=== PATIENT | female | born 1940 | race Caucasian/White ===

== ENCOUNTER → 2017-02-12 | Outpatient (CLI) | payer OTHER, MEDICAID | LOC: FIMAGING 10:01 | PROVIDERS: ATTEND Internal Medicine Hematology & Oncology | DX: Z12.31 Encounter for screening mammogram for malignant neoplasm of breast (principal); Z85.3 Personal history of malignant neoplasm of breast | CPT/HCPCS: G0202 ==

== ENCOUNTER → 2018-03-12 | Outpatient (CLI) | payer OTHER, MEDICAID | LOC: FIMAGING 09:25 | PROVIDERS: ATTEND Internal Medicine Hematology & Oncology | DX: Z12.31 Encounter for screening mammogram for malignant neoplasm of breast (principal); Z85.3 Personal history of malignant neoplasm of breast ==

== ENCOUNTER 2018-10-19 16:42 | Emergency (ER) | payer OTHER, MEDICAID ==
--- NOTE | 2018-10-19 16:43 | EDPHY ---
H & P Time Seen by Provider: 10/19/18 16:42 Constitutional: Initial Vital Signs Temperature (C) 36.3 C 10/19/18 16:50 Heart Rate 95 10/19/18 16:50 Respiratory Rate 16 10/19/18 16:50 Blood Pressure 184/122 H 10/19/18 16:50 O2 Sat (%) 97 10/19/18 16:50 O2 Delivery Mode Room Air Allergies/Adverse Reactions: iodine Allergy (Intermediate, Verified 03/01/15 11:44) NAUSEA morphine Allergy (Intermediate, Verified 03/01/15 11:44) Hives Penicillins Allergy (Intermediate, Verified 03/01/15 11:44) Hives shellfish derived Allergy (Intermediate, Verified 03/01/15 11:44) NAUSEA BEE PRODUCTS, BEE STINGS Allergy (Severe, Uncoded 03/01/15 11:44) Anaphylaxis Home Medications: Medication Instructions Recorded Allopurinol 10/19/18 Glimepiride 10/19/18 Indomethacin 10/19/18 Medical Decision Making ED Course/Re-evaluation: CHIEF COMPLAINT: Hypoglycemia HISTORY OF PRESENT ILLNESS: The patient is a 78 y/o female with a history of hypertension, breast cancer, and hyperglycemia who arrives via EMS for evaluation of hypoglycemia this evening. Per EMS, her described her as foggy since yesterday that worsened today to the point where she stopped answering questions so he called EMS. They found her altered with a BGL of 38. They administered 20gm IV dextrose and her symptoms improved significantly. She then told them she is trying to lose weight and is on a calorie restriction diet consuming about 1200 calories per day. She is also on glimepiride for blood sugar control, which she has continued to take while dieting. She does not know why she is on this medication and does not think she has has a history of diabetes or blood sugar issues. She currently denies any complaints including headache, weakness, paresthesias, recent illness, or recent trauma. REVIEW OF SYSTEMS: A comprehensive 10 system review of systems is otherwise negative aside from elements mentioned in the history of present illness and medical decision making. PHYSICAL EXAM: HR, BP, O2 Sat, RR. Temp noted General Appearance: Alert, well hydrated, appropriate, and non-toxic appearing. Head: Atraumatic without scalp tenderness or obvious injury Eyes: Pupils equal, round, reactive to light and accommodation, EOMI, no trauma , no injection. Nose: Atraumatic, no rhinorrhea, clear. Throat: Mucus membranes moist. Neck: Supple, nontender, no lymphadenopathy. Respiratory: No retractions, no distress, no wheezes, and no accessory muscle use. Lungs are clear to auscultation bilaterally. Cardiovascular: Regular rate and rhythm, no murmurs, rubs, or gallops. Good capillary refill all extremities. Gastrointestinal: Abdomen is soft, nontender, non-distended, no masses, no rebound, no guarding, no peritoneal signs. Musculoskeletal: Normal active ROM of all extremities, atraumatic. Neurological: Alert, appropriate, and interactive. The patient has non-focal cranial nerves, motor, sensory, and cerebellar exam. Skin: No rashes, good turgor, no nodules on palpation. Past medical history: Hypertension, hyperglycemia/diabetes?, breast cancer, hypothyroidism Past surgical history: Lumpectomy, hysterectomy Family history: Noncontributory Social history: . Lives in [place]. Retired. DIFFERENTIAL DIAGNOSIS: The differential diagnosis for the patient's altered mental status included but was not limited to hypoglycemia, infectious process, electrolyte abnormality, head injury, neurologic process, anemia, cardiac process, and intoxicants. MEDICAL DECISION MAKING: This is a 78 y/o female with some history of hyperglycemia or diabetes who presents for evaluation after an episode of hypoglycemia in the setting of calorie restriction and continued use of her glimepiride. She is currently asymptomatic and her exam is unremarkable. Plan for PO food and BGL recheck. Repeat BGL has improved. Patient will be discharged home in good condition with instructions to continue eating tonight and follow up with her PCP before continuing any dieting. Standard care instructions and return precautions discussed. She is comfortable with plan for discharge. - Data Points Laboratory Results: 10/19/18 17:36 POC Hgb 18.0 gm/dL H gm/dL (12.6-16.3) POC Hct 53 % H % (38-47) POC Sodium 139 mEq/L mEq/L (135-145) POC Potassium 3.5 mEq/L mEq/L (3.3-5.0) POC Chloride 102 mEq/L mEq/L (97-110) POC Total CO2 19 mEq/L L mEq/L (22-31) POC BUN 15 mg/dL mg/dL (7-23) POC Creatinine 1.0 mg/dL mg/dL (0.6-1.0) POC Glucose 50 mg/dL L mg/dL (70-100) Point of Care Test Results: Chemistry 10/19/18 17:36 POC Sodium 139 mEq/L mEq/L (135-145) POC Potassium 3.5 mEq/L mEq/L (3.3-5.0) POC Chloride 102 mEq/L mEq/L (97-110) POC Total CO2 19 mEq/L L mEq/L (22-31) POC BUN 15 mg/dL mg/dL (7-23) POC Creatinine 1.0 mg/dL mg/dL (0.6-1.0) POC Glucose 50 mg/dL L mg/dL (70-100) ISTAT H&H 10/19/18 17:36 POC Hgb 18.0 gm/dL H gm/dL (12.6-16.3) POC Hct 53 % H % (38-47) Departure - Departure Disposition: Home, Routine, Self-Care Clinical Impression: Hypoglycemia Condition: Good Instructions: Hypoglycemia in a Person with Diabetes (ED) Additional Instructions: Eat normally for the next few days until you can meet with your doctor and he can adjust your blood sugar medication. Return to the ED for any recurrent or worsening symptoms. Referrals: Denia Palumbo MD [Medical Doctor] - As per Instructions Report Scribed for: Lyle Rios Report Scribed by: Sarahi Mcgovern Date of Report: 10/19/18 Time of Report: 17:25
[2018-10-19 18:19] VITALS: BP 143/98
== END 2018-10-19 18:13 | disposition home or self-care (01) ==
LOC: EDUNIT#
DX: E16.2 Hypoglycemia, unspecified (principal); I10 Essential (primary) hypertension; Z85.3 Personal history of malignant neoplasm of breast
CPT/HCPCS: 82435-PO; 82565-PO; 82947-PO; 84132-PO; 84295-PO; 84520-PO; 85014-ER

== ENCOUNTER 2018-10-20 09:22 | Inpatient (IN) | payer OTHER, MEDICAID ==
--- NOTE | 2018-10-20 09:56 | EDPHY ---
H & P Time Seen by Provider: 10/20/18 09:41 HPI/ROS: CHIEF COMPLAINT: Altered mental status, low blood sugar HISTORY OF PRESENT ILLNESS: Patient was seen yesterday after being found hypoglycemic. Apparently further history reveals that she actually did accidentally take 1 of her 's Amaryl tablets yesterday. She was evaluated and discharged and then found by her unconscious on the bathroom floor at 4:00 a.m. Today. EMS glucose was 29, she was given IV glucose and awakened. She does relate having been tired and sweaty with some blurred vision over the past 24 hr. She has been having trouble remembering the passwords on her computer screen. After EMS evaluation but before coming here she took her usual morning medications but accidentally took 1 tablet of her 's Amaryl again. REVIEW OF SYSTEMS: Eye: Occasional blurred vision ENT: no sore throat Cardiac: No chest pain Pulmonary: no cough or SOB Abdomen: no vomiting, diarrhea, abdominal pain Musculoskeletal: no back pain Skin: Intermittent diaphoresis and sweating Neuro: no headache Constitutional: no fever : no urinary symptoms A comprehensive 10 point review of systems is otherwise negative aside from elements mentioned in the history of present illness. PAST MEDICAL HISTORY: Does not have diabetes. Hypertension, breast cancer, hypothyroid, gout Social history: Here with her who does have diabetes and takes glimepiride. General Appearance: Alert and conversant, cooperative. Eyes: No scleral icterus. ENT, Mouth: Normal mucous membranes. No tongue laceration or abrasion. Respiratory: Normal respiratory effort, breath sounds equal, lungs are clear to auscultation. Cardiovascular: Regular rate and rhythm. Gastrointestinal: Abdomen is soft and non tender. Neurological: Alert, face symmetric, normal motor and sensory in extremities. Skin: Warm and dry, no rashes. Not diaphoretic. Musculoskeletal: No peripheral edema. Psychiatric: Not agitated. Emergency Department course/MDM: Carli [address] Potter. Glucose 95 in ED. Patient had recurrent accidental ingestion of her 's hypoglycemic medication. Admit for further glucose monitoring. At this point I think it is unlikely she had seizure or stroke, intracranial bleed, sodium abnormality, or head trauma. Smoking Status: Former smoker Constitutional: Initial Vital Signs Temperature (C) 36.7 C 10/20/18 09:27 Heart Rate 104 H 10/20/18 09:27 Respiratory Rate 18 10/20/18 09:27 Blood Pressure 167/116 H 10/20/18 09:27 O2 Sat (%) 97 10/20/18 09:27 O2 Delivery Mode Room Air Allergies/Adverse Reactions: iodine Allergy (Intermediate, Verified 03/01/15 11:44) NAUSEA morphine Allergy (Intermediate, Verified 03/01/15 11:44) Hives Penicillins Allergy (Intermediate, Verified 03/01/15 11:44) Hives shellfish derived Allergy (Intermediate, Verified 03/01/15 11:44) NAUSEA BEE PRODUCTS, BEE STINGS Allergy (Severe, Uncoded 03/01/15 11:44) Anaphylaxis Home Medications: Medication Instructions Recorded Allopurinol 10/20/18 Indomethacin 10/20/18 Levothyroxine 10/20/18 Lisinopril 10/20/18 Lovastatin 10/20/18 Medical Decision Making - Data Points Laboratory Results: 10/20/18 09:49 POC Hgb 17.3 gm/dL H gm/dL (12.6-16.3) POC Hct 51 % H % (38-47) POC Sodium 134 mEq/L L mEq/L (135-145) POC Potassium 4.3 mEq/L mEq/L (3.3-5.0) POC Chloride 102 mEq/L mEq/L (97-110) POC Total CO2 19 mEq/L L mEq/L (22-31) POC BUN 16 mg/dL mg/dL (7-23) POC Creatinine 0.8 mg/dL mg/dL (0.6-1.0) POC Glucose 95 mg/dL mg/dL (70-100) Point of Care Test Results: Chemistry 10/20/18 09:49 POC Sodium 134 mEq/L L mEq/L (135-145) POC Potassium 4.3 mEq/L mEq/L (3.3-5.0) POC Chloride 102 mEq/L mEq/L (97-110) POC Total CO2 19 mEq/L L mEq/L (22-31) POC BUN 16 mg/dL mg/dL (7-23) POC Creatinine 0.8 mg/dL mg/dL (0.6-1.0) POC Glucose 95 mg/dL mg/dL (70-100) ISTAT H&H 10/20/18 09:49 POC Hgb 17.3 gm/dL H gm/dL (12.6-16.3) POC Hct 51 % H % (38-47) Departure - Departure Disposition: [facility] Clinical Impression: Hypoglycemia secondary to sulfonylurea Qualifiers: Encounter type: initial encounter Injury intent: accidental or unintentional Qualified Code(s): T38.3X1A - Poisoning by insulin and oral hypoglycemic [ antidiabetic] drugs, accidental (unintentional), initial encounter; E16.0 - Drug -induced hypoglycemia without coma; E16.0 - Drug-induced hypoglycemia without coma Condition: Good
[2018-10-20 10:13] LABS: PLATELET COUNT 325 10^3/uL (150-400)
[2018-10-20] MEDS ORDERED: ACETAMINOPHEN 325 MG TAB PO PRN (12:36)
[2018-10-20] MEDS ORDERED: ONDANSETRON 4 MG/2 ML VIAL IVP PRN (12:36)
[2018-10-20] MEDS ORDERED: HYDROCODONE/APAP 5/325 TAB PO PRN (12:36)
[2018-10-20] MEDS ORDERED: PROMETHAZINE HCL 25 MG/ML INJ IVP PRN (12:36)
[2018-10-20] MEDS ORDERED: oxyCODONE IR 5 MG TAB PO PRN (12:36)
[2018-10-20] MEDS ORDERED: ONDANSETRON DISINTEGRATING 4 MG TAB PO PRN (12:36)
[2018-10-20] MEDS ORDERED: traZODone 50 MG TAB PO PRN (12:37)
--- NOTE | 2018-10-20 13:25 | PDGENHP ---
History and Physical - Chief Complaint low glucose/inadvertent medication use - History of Present Illness 78 yo F with PMH of HTN and breast cancer who presents following inadvertent ingestion of her husbands DM medication, amaryl. Patient notes her is in the early stages of dementia and has been having increasing issues with memory recently. He seems to have recently been putting his DM medication in her drawer where she keeps her medications, and the past 2 mornings she took this medication without looking at the bottle. Yesterday she became quite dizzy and confused, was unable to answer questions and EMS was called by her . They found her with a glucose of 38, she was monitored in ER and sent home. This morning unfortunately, she again took her husbands amaryl, had a recurrent issue like yesterday, EMS called and found her obtunded and sweaty and was found to have a glucose of 29. She improved with administration of glucose. She notes she had a similar event early this morning where she had a near syncopal event and had to lie down on the floor. Since arrival in ER her glucose has been near 100 and she has been feeling relatively normal, though she does admit that yesterday she felt well for most of the day as well until having the near syncopal event in the morning. Prior to inadvertently taking those medications she had been feeling well without other changes in her health, no pain or fever or other issues recently. She has been on a diet for the last 6 months, notes she has intentionally lost 40 pounds by restricting her calories to around 1500/ day. History Information - Allergies/Home Medication List Allergies/Adverse Reactions: iodine Allergy (Intermediate, Verified 03/01/15 11:44) NAUSEA morphine Allergy (Intermediate, Verified 03/01/15 11:44) Hives Penicillins Allergy (Intermediate, Verified 03/01/15 11:44) Hives shellfish derived Allergy (Intermediate, Verified 03/01/15 11:44) NAUSEA BEE PRODUCTS, BEE STINGS Allergy (Severe, Uncoded 03/01/15 11:44) Anaphylaxis Home Medications: Allopurinol [Allopurinol 300 MG (RX)] 300 mg PO DAILY 10/20/18 [Last Taken Unknown] Exemestane 25 mg PO DAILY 10/20/18 [Last Taken Unknown] Hydrochlorothiazide [HCTZ (*)] 25 mg PO DAILY 10/20/18 [Last Taken Unknown] Indomethacin [Indocin 25 mg (*)] 25 mg PO DAILY 10/20/18 [Last Taken Unknown] Levothyroxine [Synthroid 100 mcg (*)] 100 mcg PO DAILY 10/20/18 [Last Taken Unknown] Lisinopril [Zestril 10 mg (*)] 10 mg PO DAILY 10/20/18 [Last Taken Unknown] Lovastatin 40 mg PO HS 10/20/18 [Last Taken Unknown] traZODone [traZODONE 50MG (*)] 50 mg PO HS PRN 10/20/18 [Last Taken Unknown] I have personally reviewed and updated: family history, medical history, social history, surgical history - Past Medical History cancer (breast), hypertension, hyperlipidemia Additional medical history: hypothyroid - Surgical History Reports: cancer surgery - Family History Positive for: non-pertinent - Social History Smoking Status: Former smoker Alcohol Use: Rarely Drug Use: None Additional social history: lives independently with her Review of Systems Review of Systems: ROS: 10pt was reviewed & negative except for what was stated in HPI & below Physical Exam Physical Exam: Temp Pulse Resp BP Pulse Ox 36.5 C 101 H 18 157/114 H 96 10/20/18 10:32 10/20/18 10:32 10/20/18 10:32 10/20/18 10:32 10/20/18 10:32 Constitutional: no apparent distress, appears nourished Eyes: PERRL, anicteric sclera Ears, Nose, Mouth, Throat: moist mucous membranes, hearing normal Cardiovascular: regular rate and rhythym, no murmur, rub, or gallop, No edema Respiratory: no respiratory distress, no rales or rhonchi Gastrointestinal: normoactive bowel sounds, soft, non-tender abdomen Genitourinary: no bladder tenderness Skin: warm, normal color Musculoskeletal: full muscle strength Neurologic: AAOx3 Psychiatric: interacting appropriately, not anxious, not encephalopathic Lab Data & Imaging Review 10/20/18 09:30 10/20/18 09:30 WBC 14.35 10^3/uL (3.80-9.50) H 10/20/18 09:30 RBC 5.07 10^6/uL (4.18-5.33) 10/20/18 09:30 Hgb 15.2 g/dL (12.6-16.3) 10/20/18 09:30 POC Hgb 17.3 gm/dL (12.6-16.3) H 10/20/18 09:49 Hct 45.9 % (38.0-47.0) 10/20/18 09:30 POC Hct 51 % (38-47) H 10/20/18 09:49 MCV 90.5 fL (81.5-99.8) 10/20/18 09:30 MCH 30.0 pg (27.9-34.1) 10/20/18 09:30 MCHC 33.1 g/dL (32.4-36.7) 10/20/18 09:30 RDW 15.0 % (11.5-15.2) 10/20/18 09:30 Plt Count 325 10^3/uL (150-400) 10/20/18 09:30 MPV 10.7 fL (8.7-11.7) 10/20/18 09:30 Neut % (Auto) 84.0 % (39.3-74.2) H 10/20/18 09:30 Lymph % (Auto) 7.2 % (15.0-45.0) L 10/20/18 09:30 [place] % (Auto) 7.5 % (4.5-13.0) 10/20/18 09:30 Eos % (Auto) 0.5 % (0.6-7.6) L 10/20/18 09:30 Baso % (Auto) 0.3 % (0.3-1.7) 10/20/18 09:30 Nucleat RBC Rel Count 0.0 % (0.0-0.2) 10/20/18 09:30 Absolute Neuts (auto) 12.06 10^3/uL (1.70-6.50) H 10/20/18 09:30 Absolute Lymphs (auto) 1.04 10^3/uL (1.00-3.00) 10/20/18 09:30 Absolute Monos (auto) 1.07 10^3/uL (0.30-0.80) H 10/20/18 09:30 Absolute Eos (auto) 0.07 10^3/uL (0.03-0.40) 10/20/18 09:30 Absolute Basos (auto) 0.04 10^3/uL (0.02-0.10) 10/20/18 09:30 Absolute Nucleated RBC 0.00 10^3/uL (0-0.01) 10/20/18 09:30 Immature Gran % 0.5 % (0.0-1.1) 10/20/18 09:30 Immature Gran # 0.07 10^3/uL (0.00-0.10) 10/20/18 09:30 POC Sodium 134 mEq/L (135-145) L 10/20/18 09:49 Sodium 132 mEq/L (135-145) L 10/20/18 09:30 POC Potassium 4.3 mEq/L (3.3-5.0) 10/20/18 09:49 Potassium 4.9 mEq/L (3.5-5.2) 10/20/18 09:30 POC Chloride 102 mEq/L (97-110) 10/20/18 09:49 Chloride 101 mEq/L (97-110) 10/20/18 09:30 Carbon Dioxide 17 mEq/l (22-31) L 10/20/18 09:30 POC Total CO2 19 mEq/L (22-31) L 10/20/18 09:49 Anion Gap 14 mEq/L (6-14) 10/20/18 09:30 POC BUN 16 mg/dL (7-23) 10/20/18 09:49 BUN 16 mg/dL (7-23) 10/20/18 09:30 Creatinine 0.9 mg/dL (0.6-1.0) 10/20/18 09:30 POC Creatinine 0.8 mg/dL (0.6-1.0) 10/20/18 09:49 Estimated GFR > 60 10/20/18 09:30 Glucose 94 mg/dL (70-100) 10/20/18 09:30 POC Glucose 122 mg/dL (70-100) H 10/20/18 10:32 Calcium 10.0 mg/dL (8.5-10.4) 10/20/18 09:30 Assessment & Plan Assessment: Hypoglycemia secondary to sulfonylurea (Acute) 78 yo F with symptomatic severe hypoglycemia in setting of inadvertent sulfonylurea intake # critical hypoglycemia: patient found unconscious with glucose of 29 following inadvertent sulfonylurea intake two days in a row coupled with intentional calorie restriction. She has had improved blood glucose since arrival but given that medication effect is up to 24 hours, she remains at risk for recurrent hypoglycemia. Will start her on D5 and encouraged her to eat frequent meals, will check q2 hour glucose for now. # syncope: in the setting of severe hypoglycemia and related to same, treatment as above, will monitor on tele # htn: slightly elevated since arrival, will resume home meds including lisinopril/hctz # hld: continue statin # breast cancer: continue exemestane # observation status Patient new to my care. Old records reviewed and summarized as above. Care plan reviewed with ER doctor as above.
[2018-10-20] MEDS: D50W 25 GM/50 ML SYR IVP PRN ×2 (15:42→18:04)
[2018-10-20] MEDS ORDERED: D5W NS 1,000 ML IV SCH (15:45)
[2018-10-20] MEDS ORDERED: hydrALAZINE 20 MG/ML VIAL IVP PRN (18:44)
[2018-10-20] MEDS ORDERED: NS 1,000 ML IV SCH (19:00)
[2018-10-20] MEDS ORDERED: D10W 1,000 ML IV SCH (19:00)
--- NOTE | 2018-10-20 19:30 | HOSPPROG ---
Hospitalist Progress Note Assessment/Plan: 78 yo F admitted today for hypoglycemia after accidentally taking 's Amaryl. Since admission, glucose as low as 38 despite D5 gtt. Dosed 2 amp D5W. S: feels fine O: HR 120, RR 14, 95RA Gen: NAD CV: tachy, regular Lungs: CTA Neuro: 2-12 intact Psych A&Ox3 A&P: 1. Persistent hypoglycemia -due to Amaryl. Half-life 9 hrs -move to ICU for serial glucose checks, [id number] #Tachycardia: suspect dehydrated: gentle IVFs #HTN: PRN hydral Disp: transfer to ICU critical care time spent: 30 min bedside evaluating pt, reviewing notes and labs (19:15-19:45) Objective: Vital Signs Temp Pulse Resp BP Pulse Ox 36.8 C 104 H 18 162/104 H 91 L 10/20/18 17:55 10/20/18 17:55 10/20/18 17:55 10/20/18 17:55 10/20/18 17:55 10/19/18 10/20/18 10/21/18 05:59 05:59 05:59 Intake Total 200 Balance 200 ICD10 Worksheet Patient Problems: Problems Problem Status Onset Hypoglycemia secondary to sulfonylurea Acute
[2018-10-20] MEDS: PRAVASTATIN SODIUM 40 MG TAB PO SCH (22:39)
[2018-10-21 05:50] LABS: PLATELET COUNT 286 10^3/uL (150-400)
[2018-10-21] MEDS: LEVOTHYROXINE 100 MCG TAB PO SCH (07:44)
[2018-10-21] MEDS: ALLOPURINOL 300 MG TAB PO SCH (08:53)
[2018-10-21] MEDS: LISINOPRIL 10 MG TAB PO SCH (08:53)
[2018-10-21] MEDS: EXEMESTANE 25 MG TAB PO SCH (08:55)
[2018-10-21] MEDS ORDERED: HYDROCHLOROTHIAZIDE 25 MG TAB PO SCH (09:00)
[2018-10-21] MEDS: INDOMETHACIN 25 MG CAP PO SCH (09:34)
[2018-10-21] MEDS ORDERED: PNEUMOC 13-VAL CONJ-DIP CRM/PF 0.5 ML SYR (PREVNAR 13) IM ONE (09:35)
--- NOTE | 2018-10-21 09:51 | HOSPPROG ---
Hospitalist Progress Note Assessment/Plan: 78 yo F with symptomatic severe hypoglycemia in setting of inadvertent sulfonylurea intake. # Critical hypoglycemia: Improved, now off dextrose infusion, tolerating PO. - Recheck BG q2h - She ingested sulfonylurea around 8am yesterday. Half life elimination 5-9 hours so should be clearing - Discussed with patient and pharmacy. Will try to get her a color coded pill box from our pharmacy to help prevent recurrence # Hyponatremia: Mildly low on admit, decreased to 128 with D5W overnight (was also receiving NS at 75/hr). - Check urine sodium, osms - Stopped free water infusion - Increase NS to 125ml/hr - Recheck serum Na at 1pm - Hold home HCTZ for now # Syncope: Related to low blood glucose. # HTN: Continue lisinopril, holding hctz as above. # HLD: On statin # Breast cancer: Continue exemestane Dispo: If BG stabilizes off dextrose infusion and sodium improves as expected, should be ok to discharge later this afternoon with PCP follow up. Subjective: BG improved this AM, D5 titrated off. Patient ate breakfast. Feeling fine, no complaints. Objective: Vital Signs Temp Pulse Resp BP Pulse Ox 36.9 C 89 10 L 126/72 H 91 L 10/21/18 08:00 10/21/18 08:00 10/21/18 08:00 10/21/18 08:00 10/21/18 08:00 Laboratory Results 10/21/18 05:35 10/21/18 05:35 10/20/18 10/21/18 10/22/18 05:59 05:59 05:59 Intake Total 1780 345 Balance 1780 345 - Physical Exam Constitutional: no apparent distress, appears nourished, not in pain Eyes: PERRL, anicteric sclera, EOMI Ears, Nose, Mouth, Throat: moist mucous membranes, hearing normal, ears appear normal, no oral mucosal ulcers Cardiovascular: regular rate and rhythym, no murmur, rub, or gallop Respiratory: no respiratory distress, no rales or rhonchi, clear to auscultation Gastrointestinal: normoactive bowel sounds, soft, non-tender abdomen, no palpable masses Genitourinary: no bladder fullness, no bladder tenderness, no renal bruits Skin: no rashes or abrasions, no fluctuance, no induration Musculoskeletal: full muscle strength, no muscle tenderness, normal joint ROM Neurologic: AAOx3, sensation intact bilaterally Psychiatric: interacting appropriately, not anxious, not encephalopathic, thought process linear ICD10 Worksheet Patient Problems: Problems Problem Status Onset Hypoglycemia secondary to sulfonylurea Acute
--- NOTE | 2018-10-21 15:28 | PDMN ---
Medical Necessity Medical necessity: [facility] General Admission: 78 yo presents initially w/ inadvertent ingestion of 's DM med, Amaryl. Pt treated for critical hypoglycemia and was admitted to OBS status to monitor BGs. 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 Pt requires additional MN for q6H Na + levels, more freq if cont to drop, check TSH and AM cortisol level in morning. Placed on fluid restriction. Change to IP status 10/21/18@1508 per MD order.
--- NOTE | 2018-10-21 15:58 | ASMTCMCOM ---
CM Note CM Note Notes: Nisha is a 78 yo female who presents with unintentional ingestion of Amaryl and hypoglycemia. Pt reports she mixed up her and her husbands medication. CM discussed discharging pt with [facility] homecare RN and pt was agreeable to help with medication management. Plan: home with [facility] Date Signed: 10/21/2018 03:57 PM Electronically Signed By:HODAN Mosqueda
[2018-10-21] MEDS: PRAVASTATIN SODIUM 40 MG TAB PO SCH (20:34)
[2018-10-22 08:00] VITALS: BP 103/69
[2018-10-22] MEDS: ALLOPURINOL 300 MG TAB PO SCH (08:59)
[2018-10-22] MEDS: LEVOTHYROXINE 100 MCG TAB PO SCH (08:59)
[2018-10-22] MEDS: INDOMETHACIN 25 MG CAP PO SCH (08:59)
[2018-10-22] MEDS: LISINOPRIL 10 MG TAB PO SCH (08:59)
[2018-10-22] MEDS: EXEMESTANE 25 MG TAB PO SCH (09:00)
--- NOTE | 2018-10-22 13:35 | PDDCSUM ---
Discharge Summary Discharge Summary: Date of Admission: 10/20/2018 Date of Discharge: 10/22/2018 Discharge Diagnoses: 1. Symptomatic severe hypoglycemia 2. Accidental sulfonylurea ingestion 3. Hyponatremia 2/2 SIADH 4. HTN 5. Breast cancer Brief Hospital Course: 78yo F with breast cancer on exemestane, HTN on HCTZ presented after being found obtunded at home. BG was 29 on EMS arrival. She had inadvertently taken her 's glimepiride two days in a row. She received dextrose and her mental status improved to normal. She was admitted to the ICU for close glucose monitoring. She briefly required a D10 drip while the glimepiride was clearing out of her system. The dextrose infusion was stopped and her BG remained within normal range for >24 hours. She was tolerating PO without difficulty. We did encourage the patient to have a home health care RN but she declined. She plans to color coordinate her and her 's pill boxes. Her sodium level did drop from 132->128->124. She had been receiving normal saline during this time. Urine studies (Uosm almost 700, high urine Na) and a drop with isotonic fluids was consistent with SIADH. She was fluid restricted and her sodium improved to 127 and remained stable. I suspect her SIADH may have been driven by a stress reaction related to the hypoglycemia. She was instructed to follow a 1.5L/day fluid restriction and I also instructed her to stop her HCTZ. She has a repeat BMP in 2 days and follow up with her PCP in 3 days. Medications: Please refer to EMR for complete list. I have stopped her HCTZ, otherwise no medication changes. Follow Up Plan: 1. BMP ordered for 10/24 (2 days) to monitor serum sodium 2. PCP appointment on Wednesday 10/25 Physical Exam: Vitals reviewed, afebrile. Alert and oriented, rrr, lungs clear, abdomen soft, no edema of JVD, no rashes.
--- NOTE | 2018-10-22 13:38 | ASMTDCNOTE ---
Case Management Discharge Discharge Order Complete? Answers: Yes Patient to Obtain Answers: via Family Medications Transportation Arranged Answers: Family/Friends Faxed Final Orders Answers: Yes Agency/Facility Transfer Answers: Yes Report Printed & Faxed to Receiving Agency Discharge Comments Notes: Spoke with RN regarding discharge plan and submit updates to [facility]. Pt is getting discharged with [facility] RN. Family to transport. No other CM needs identified. Date Signed: 10/22/2018 01:37 PM Electronically Signed By:HODAN Mosqueda
--- NOTE | 2018-10-22 13:41 | ASDISCHSUM ---
Discharge Information Plan Status:Home with Home Health Medically Cleared to Leave: Discharge Date: D/C Disposition:Home Health Service [facility] D/C Disposition:Home, Routine, Self-Care Projected Discharge Date:10/23/2018 11:00 AM Transportation at D/C:Family Discharge Delay Reason: Follow-Up Date:10/23/2018 11:00 AM Discharge Slot: Final Diagnosis: Placement Information Referral Type:*Home Health Care Services Referral ID:[id number] Provider Name:[facility] Address 1:[address] [place] [address] Address 2: City:[place] Selection Factors: State:[place] Patient Contact Information Contact Name:VISHNUKIKA Relationship:Son Address: Work Phone: City: [facility] Phone: [facility] Code: Email: Financial Information Financial Class:Medicare Primary Plan Desc:MEDICARE INPATIENT Primary Plan Number:[id number] Secondary Plan Desc:MED[place] Secondary Plan Number:[id number] Assessment Information LACE LACE Length of stay for Answers: 1 day current admission Comorbidities - select Answers: Any tumor (including all that apply lymphoma or leukemia) Other Notes: HTN; Hypothyroid # of Emergency department Answers: 1-2 visits in the last 6 months Score: 5 Date Signed: 10/22/2018 01:38 PM Electronically Signed By:HODAN Mosqueda [facility] CM Progress Note CM Note CM Note Notes: Nisha is a 78 yo female who presents with unintentional ingestion of Amaryl and hypoglycemia. Pt reports she mixed up her and her husbands medication. CM discussed discharging pt with [facility] homecare RN and pt was agreeable to help with medication management. Plan: home with [facility] Date Signed: 10/21/2018 03:57 PM Electronically Signed By:HODAN Mosqueda Case Management Discharge Plan Note Case Management Discharge Discharge Order Complete? Answers: Yes Patient to Obtain Answers: via Family Medications Transportation Arranged Answers: Family/Friends Faxed Final Orders Answers: Yes Agency/Facility Transfer Answers: Yes Report Printed & Faxed to Receiving Agency Discharge Comments Notes: Spoke with RN regarding discharge plan and submit updates to [facility]. Pt is getting discharged with [facility] RN. Family to transport. No other CM needs identified. Date Signed: 10/22/2018 01:37 PM Electronically Signed By:HODAN Mosqueda Intervention Information Intervention Type:*LILLY-Signed Date of Service:10/21/2018 10:54 AM Patient Type:Observation Staff Member:Cris Rosas Hours: Discipline: Severity: Comment:
--- NOTE | 2018-10-22 15:56 | PDIAF ---
- Diagnosis Code Status: Full Code - Medication Management Discharge Medications: electronically signed and located in the Home Medication List. - Orders Services needed: Home Care, Registered Nurse Home Care Face to Face: I certify that this patient was under my care and that I had the required [id number] encounter meeting the encounter requirements on the discharge day. My findings support the fact that the patient is homebound as defined in Home Care Face to Face Continued: CMS Chapter 7 Medicare Benefits Manual 30.1.1 , The condition of the patient is such that there exists a normal inability to leave home and consequently, leaving home would require a considerable and taxing effort. Isolation Type: None Diet Recommendation: fluid restriction (use comment for amount) (1.5 liters per 24 hours) Additional Instructions: Please adhere to a 1.5 liter per day fluid restriction. I have temporarily stopped your hydrochlorothiazide (blood pressure medication). Please get blood work to monitor your sodium level on . I have put in an order for this. Follow up with your primary care provider on Sunday as planned. - Follow Up Care Current Providers and Referrals: NONE *PRIMARY CARE P,. [Primary Care Provider] - As per Instructions
== END 2018-10-22 14:50 | disposition home health service (06) | DRG 641 ==
LOC: F3E 10:24 → F2N 20:15 → OBSVTOIN 10-21 15:08
PROVIDERS: ADMIT Internal Medicine; ATTEND Internal Medicine
DX: E16.2 Hypoglycemia, unspecified (principal); E22.2 Syndrome of inappropriate secretion of antidiuretic hormone; T38.3X1A Poisoning by insulin and oral hypoglycemic [antidiabetic] drugs, accidental (unintentional), initial encounter; C50.919 Malignant neoplasm of unspecified site of unspecified female breast; I10 Essential (primary) hypertension; E03.9 Hypothyroidism, unspecified; M10.9 Gout, unspecified; E78.5 Hyperlipidemia, unspecified; Z23 Encounter for immunization; Z87.891 Personal history of nicotine dependence
CPT/HCPCS: 82435-PO; 82565-PO; 82947-PO; 84132-PO; 84295-PO; 84520-PO; 85014-ER; 97161-GP; G0008; G0009; G0378; J0360; J2405